=== PATIENT | female | born 1935 | race Caucasian/White ===

== ENCOUNTER 2025-06-08 17:34 | Inpatient (IN) | payer MEDICARE, OTHER ==
[~2025-06-08] VITALS: Ht 165.1 cm; Wt 68.0 kg
[2025-06-08] MEDS ORDERED: SYNTHROID (17:48)
[2025-06-08 18:03] LABS: PLATELET COUNT (AUTO) 147 K/uL (179-408); RED BLOOD CELL COUNT(AUTO) 4.48 MIL/uL (3.63-4.92); RED CELL DISTRIBUTION WIDTH 14.7 % (12.3-17.7); WHITE BLOOD COUNT (AUTO) 8.3 K/uL (3.8-11.8)
[2025-06-08] MEDS ORDERED: ONDANSETRON 4 MG/2 ML VIAL ONE ×2 (18:04→19:40)
[2025-06-08] MEDS ORDERED: HYDROMORPHONE 1 MG/1 ML DISP.SYRIN ONE ×2 (18:04→19:42)
[2025-06-08] MEDS: ONDANSETRON 4 MG/2 ML VIAL IV ONE ×2 (18:12→19:50)
[2025-06-08] MEDS: HYDROMORPHONE 1 MG/1 ML DISP.SYRIN IV ONE ×2 (18:12→19:50)
[2025-06-08 18:18] LABS: CREATININE 1.1 mg/dL (0.6-1.3); SODIUM SERUM 139 mmol/L (136-145); UREA NITROGEN, BLOOD 18 mg/dL (7-18)
[2025-06-08 18:23] LABS: ASPARTATE AMINOTRANSFERASE 16 U/L (15-37); TOTAL PROTEIN, SERUM 6.8 g/dL (6.4-8.2)
[2025-06-08 19:45] VITALS: BP 167/99
[2025-06-08 22:20] VITALS: BP 143/95; TEMP 97.8; O2SAT 91
[2025-06-08] MEDS ORDERED: ONDANSETRON 4 MG/2 ML VIAL IV PRN (22:30)
[2025-06-09] VITALS (8 sets, daily range): BP systolic 102–135; BP diastolic 52–71; TEMP 98.5–98.8; O2SAT 90–94
[2025-06-09] MEDS: MORPHINE SULFATE 2 MG/1 ML DISP.SYRIN IVP PRN (05:03)
[2025-06-09 07:15] LABS: PLATELET COUNT (AUTO) 135 K/uL (179-408); RED BLOOD CELL COUNT(AUTO) 4.30 MIL/uL (3.63-4.92); RED CELL DISTRIBUTION WIDTH 14.8 % (12.3-17.7); WHITE BLOOD COUNT (AUTO) 10.9 K/uL (3.8-11.8)
[2025-06-09 07:27] LABS: ASPARTATE AMINOTRANSFERASE 14 U/L (15-37); CREATININE 1.1 mg/dL (0.6-1.3); SODIUM SERUM 140 mmol/L (136-145); TOTAL PROTEIN, SERUM 6.8 g/dL (6.4-8.2); UREA NITROGEN, BLOOD 20 mg/dL (7-18)
[2025-06-09] MEDS: ACETAMINOPHEN 325 MG TABLET PO PRN ×2 (07:40→16:23)
[2025-06-09] MEDS ORDERED: ALBUTEROL SULFATE 1.25 MG/3 ML NEBU NEB PRN (10:00)
[2025-06-09] MEDS ORDERED: IPRATROPIUM BROMIDE 0.5 MG/2.5 ML NEBU NEB PRN (10:00)
[2025-06-09] MEDS ORDERED: LEVO75TA PO (10:15)
[2025-06-09] MEDS ORDERED: VENL75CA62 PO (10:15)
[2025-06-09] MEDS: LEVOTHYROXINE SODIUM 75 MCG TABLET PO SCH (10:21)
[2025-06-09] MEDS: VENLAFAXINE XR 75 MG TAB.ER.24H PO SCH (10:21)
[2025-06-09] MEDS: GUAIFENESIN LA 600 MG TABLET.SA PO SCH (10:21)
[2025-06-09 10:35] LABS: *BILIRUBIN,URIN NEGATIVE (NEGATIVE); *BLOOD, URINE 1+ (NEGATIVE); *CLARITY,URINE CLOUDY (CLEAR); *COLOR,URINE YELLOW (YELLOW); *KETONES,URINE TRACE (NEGATIVE); *PROTEIN,URINE TRACE (NEGATIVE); *UROBILINOGEN,URINE 0.2 E.U./dl (NORMAL); LEUKOCYTE ESTERASE ,URINE NEGATIVE (NEGATIVE); NITRITE, URINE POSITIVE (NEGATIVE); UGLUCOSE NEGATIVE (NEGATIVE)
[2025-06-09] MEDS: HYDROCODONE/APAP 5-325MG TABLET PO PRN (11:08)
[2025-06-09 11:11] LABS: SQUAMOUS EPITHELIAL CELL,UR FEW /HPF (NONE SEEN); URINE AMORPHOUS URATE FEW /HPF
[2025-06-09] MEDS: IV NS 1000 ML 1,000 ML IV PRN (11:12)
[2025-06-09] MEDS: ALBUTEROL SULFATE 1.25 MG/3 ML NEBU NEB SCH (15:25)
[2025-06-09] MEDS: IPRATROPIUM BROMIDE 0.5 MG/2.5 ML NEBU NEB SCH (15:25)
[2025-06-09] MEDS: HEPARIN SODIUM,PORCINE 5,000 UNITS/ML VIAL SQ SCH (16:48)
== END 2025-06-09 17:55 | disposition short-term general hospital (02) | DRG 536 ==
LOC: ER 17:35 → MEDSURG3 20:12
PROVIDERS: ADMIT Internal Medicine; ATTEND Nurse Practitioner Acute Care
PROC: 05HA33Z Insertion of Infusion Device into Left Brachial Vein, Percutaneous Approach (ICD-10-PCS; principal; 2025-06-09)
DX: S72.142A Displaced intertrochanteric fracture of left femur, initial encounter for closed fracture (principal); E44.1 Mild protein-calorie malnutrition; N39.0 Urinary tract infection, site not specified; D68.59 Other primary thrombophilia; W01.0XXA Fall on same level from slipping, tripping and stumbling without subsequent striking against object, initial encounter; Y92.89 Other specified places as the place of occurrence of the external cause; E03.9 Hypothyroidism, unspecified; Z79.890 Hormone replacement therapy; Z88.6 Allergy status to analgesic agent; M16.12 Unilateral primary osteoarthritis, left hip; Z74.09 Other reduced mobility; F32.A Depression, unspecified; E88.09 Other disorders of plasma-protein metabolism, not elsewhere classified
CPT/HCPCS: 36415; 71045; 72170; 73502; 84100; 84484; 85025; 85730; 87086; 93307; 94664; 94760; A4606; G0378; J0696; J1171; J1644; J2270; J2405; J3590; J7040